=== PATIENT | female | born 1980 | race Two or more races ===

== ENCOUNTER 2024-07-28 19:00 | Emergency (ER) | payer OTHER, MEDICAID, SELFPAY ==
[2024-07-28 19:01] VITALS: BMI 23.5
[2024-07-28 19:59] VITALS: BP 139/77; PULSE 98; RESP 18; TEMP 36.9; O2SAT 98
--- NOTE | 2024-07-28 20:31 | PD.EDRME ---
Rapid Medical Screening Exam RME Arrival date/time: 07/28/24 19:00 Chief Complaint: Headache Time Seen by Provider: 07/28/24 19:37 Vital signs: Vital Signs Temperature 98.5 F 07/28/24 19:59 Pulse Rate 98 07/28/24 19:59 Respiratory Rate 18 07/28/24 19:59 Blood Pressure 139/77 H 07/28/24 19:59 Pulse Oximetry (%) 98 07/28/24 19:59 Oxygen Delivery Method Room Air 07/28/24 19:59 Vital signs reviewed by provider: Yes RME Narrative: 43-year-old female presents to the ED with a complaint of headache off and on for years but worse since this past . She is also complaining of palpitations and irregular heartbeat with occasional difficulty swallowing. She has associated nausea, and tingling in her hands and feet. She denies fever or chills. I have greeted and performed a focused initial assessment of this patient. A comprehensive ED assessment and evaluation of the patient, analysis of all test results, and completion of the medical decision making process will be conducted by additional ED providers.
--- NOTE | 2024-07-28 20:44 | PD.EDHA ---
ED Headache RME/HPI General Chief Complaint: Headache Stated Complaint: HEADACHE/DIZZINESS/SOB/EXTREMITY TINGLING X 3 DAYS Time Seen by Provider: 07/28/24 19:37 Arrival date/time: 07/28/24 19:00 RME / HPI RME / HPI Narrative: 43-year-old female presents to the ED with a complaint of headache off and on for years but worse since this past . She is also complaining of palpitations and irregular heartbeat with occasional difficulty swallowing. She has associated nausea, and tingling in her hands and feet. She denies fever or chills. I have greeted and performed a focused initial assessment of this patient. A comprehensive ED assessment and evaluation of the patient, analysis of all test results, and completion of the medical decision making process will be conducted by additional ED providers. This section includes all my notes and documentations, including HPI, PE, and ED course. Devin Sánchez MD HPI: 43yo female with no significant past medical history presents to the ED with uncomfortable intermittent episodes for the past several days. Symptoms can include intense fear, pounding and racing heart, sweating, chills, shaking, trouble breathing, chest pain, stomach pain, nausea, numbness and tingling in the hands and feet and face, confusion, hot flashes, and feeling faint. No other complaints. ROS: All negative except as documented in HPI. Physical Exam: General: Alert and oriented. Appears anxious. Eyes: Conjunctivae and lids clear. EOMI. PERRL. ENT: No nasal congestion. Neck: Supple. No carotid bruit. No JVD. Heart: RRR. Lungs: No respiratory distress. Good air movement. No rhonchi, wheezing, rales. Abdomen: Soft and nontender. Normal bowel sounds. No distension. No rebound or guarding. Back: No CVA tenderness. Legs: No clubbing, cyanosis, edema. Skin: Warm and dry. Neuro: Alert and oriented X 3. Cranial Nerves II-XII grossly intact. No peripheral motor deficits. I reviewed all diagnostic test results. My interpretation of the EKG is NSR with no ST-T changes. My interpretation of the chest x-ray is NAD. My review of the CT head report is unremarkable. Blood tests are unremarkable. At this point, diagnoses include anxiety reaction. Treatment here included Xanax and Zofran. Significant improvement noted. Recommended more outpatient workup. Based on my best medical judgment, made decision no further evaluation or treatment indicated at this time. Patient understands and agrees to the discharge instructions customized and printed, see below. Discharge instructions from Dr. Sánchez: 1. After extensive evaluation, there is no life-threatening condition. Such as stroke or brain tumor or heart attack or pulmonary embolism (blood clots in your lungs) or pneumothorax (collapsed lung). 2. Your symptoms may be due to underlying stress or anxiety or nerves. This is fairly common. 3. Take Xanax as needed. Whether this helps or not will be valuable information to your private doctors. 4. See a private doctor on 07/30/2024. To make sure there is no serious underlying heart condition, ask to help you get more tests for your heart that cannot be done here in the ER. Such as Holter Monitor (cardiac monitoring at home from a day to even a month), heart stress test (on treadmill or with medication), echocardiogram (imaging of your heart structures), heart catherization (checking for blockages in your heart arteries), and a referral to see a [employer]. 5. Seek immediate medical care with worsening or with any concerns. Devin Sánchez MD Related Data Previous Rx's ?Medication ?Instructions ?Recorded ipratropium bromide 21 mcg (0.03 2 spray intranasal BID #30 mL 11/18/18 %) nasal spray loratadine 10 mg tablet (Allergy 10 mg PO QDAY allergy symptoms #30 11/18/18 Relief (loratadine)) tabs ibuprofen 600 mg tablet 600 mg PO Q8H #14 tabs 11/21/18 alprazolam 0.5 mg tablet (Xanax) 0.5 mg PO BID PRN anxiety #10 tabs 07/28/24 Allergies Allergy/AdvReac Type Severity Reaction Status Date / Time No Known Allergies Allergy Verified 07/28/24 19:03 Review of Systems Review of Systems Systems Reviewed: All systems reviewed, normal except as documented Past Medical History Past Medical History CARDIAC: Negative Congestive Heart Failure RESPIRATORY: Negative Chronic Obstructive Pulmonary Disease (COPD) GENITOURINARY: Negative Renal Disease ENDOCRINE: Negative Diabetes Mellitus Type 1 or Diabetes Mellitus Type 2 Social History SMOKING STATUS: Never smoker ED Exam Narrative Physical exam: As noted in HPI. Course Course Course Narrative: CXR is ordered for determining the etiology of palpitations. Quality Measures none Orders Category Date Time Status EKG (ED ONLY) *Do not use* NOW Care 07/28/24 20:[address] head/brain wo con Stat Exams 07/28/24 20:53 Completed EKG (ED Only) Stat Exams 07/28/24 20:53 Draft XR chest 1V portable Stat Exams 07/28/24 20:53 Completed BNP [B-Type Natriuretic Peptide] Stat Lab 07/28/24 21:08 Completed Bilirubin,Direct Stat Lab 07/28/24 21:08 Completed CBC Stat Lab 07/28/24 21:08 Completed CMP [Comprehensive Metabolic Panel] Stat Lab 07/28/24 21:08 Completed Free T4 (Free Thyroxine) Stat Lab 07/28/24 21:08 Completed Magnesium Stat Lab 07/28/24 21:08 Completed TSH [Thyroid Stimulating Hormone] Stat Lab 07/28/24 21:08 Completed Troponin I Stat Lab 07/28/24 21:08 Completed ALPRazoLAM [Xanax] Med 07/28/24 20:52 Discontinued 0.5 mg PO X1 ONE Ondansetron Odt [Zofran Odt] Med 07/28/24 20:53 Discontinued 4 mg PO X1 ONE Vital Signs Vital signs: Vital Signs Temperature 98.5 F 07/28/24 19:59 Pulse Rate 98 07/28/24 19:59 Respiratory Rate 18 07/28/24 19:59 Blood Pressure 139/77 H 07/28/24 19:59 Pulse Oximetry (%) 98 07/28/24 19:59 Oxygen Delivery Method Room Air 07/28/24 19:59 Headache MDM Narrative MDM Narrative:: Scribe Attestation: 07/28/24 - Loida Hayward am scribing for and in the presence of Dr. Sánchez. 43yo female with no significant past medical history presents to the ED for a chief complaint of a headache for the last few days. Patient states her headache is intermittent, reporting it's gotten progressively worse. Patient reports associated lightheadedness, dizziness, palpitations, and tingling to her face, bilateral hands, and bilateral feet. Patient denies any fever, chills, sweating, cough or any other associated symptoms. No other complaints reported. Patient data External records reviewed:: [facility] previous records (Per chart review, patient was seen here on 04/13/21 for chest pain.) Clinical information provided by:: patient Social determinants that could affect healthcare access:: none Patient has the following chronic illnesses:: none How is presenting disease/condition affected by chronic disease/condition?: no chronic disease Evaluation data The following diagnostics were reviewed and interpreted by me:: lab results, radiology exam(s) and EKG tracing(s) (My interpretation of the EKG: NSR (80 bpm) with no ST-T changes. Devin Sánchez MD) Lab and/or radiology exams considered but not ordered:: none Interpretation Summary: I reviewed all diagnostic test results. My interpretation of the EKG is NSR with no ST-T changes. My interpretation of the chest x-ray is NAD. My review of the CT head report is unremarkable. Blood tests are unremarkable. Medications / Prescriptions Medications or Prescriptions considered but not ordered:: none Medication administrations:: Medication Administration History Discontinued Medications Alprazolam (Alprazolam 0.25 Mg Tablet) 0.5 mg PO X1 ONE Stop: 07/28/24 20:53 Last Admin: 07/28/24 21:02 Dose: 0.5 mg Documented By: JOHNNIE Ondansetron HCl (Ondansetron Odt 4 Mg Tabrap) 4 mg PO X1 ONE; Protocol Stop: 07/28/24 20:54 Last Admin: 07/28/24 21:02 Dose: 4 mg Documented By: Alan Arevalo Consultations Consultation(s) initiated? (list below): No Diagnosis Differential diagnosis headache: migraine, tension headache, subarachnoid hemorrhage, headache, meningitis, sinusitis, postconcussion syndrome and other (CT, anxiety) Most likely diagnosis given after review of the tests above:: Anxiety Admission Indicated Admission indicated?: not indicated Explain why admission is indicated or not indicated:: With significant improvement, there was no indication for admission. Admission Request Was there a request for admission?: No Disposition Plan Disposition Plan: Discharge Discharge Attestation Discharge Attestation: The patient and all family members were given an opportunity to ask questions and understood the discharge instructions. Discharge instructions specifically effects, indications for sooner follow up or return to the emergency department, and the expected course of current diagnosis. Patient condition: Stable Discharge Plan Plan Patient Disposition: HOME (Self Care) Prescriptions/Referrals Prescriptions/Med Rec: New alprazolam [Xanax] 0.5 mg tablet 0.5 mg PO BID PRN (Reason: anxiety) Qty: 10 0RF No Action ibuprofen 600 mg tablet 600 mg PO Q8H Qty: 14 0RF loratadine [Allergy Relief (loratadine)] 10 mg tablet 10 mg PO QDAY Qty: 30 3RF ipratropium bromide 0.03 % spray,non-aerosol 2 spray INTRANASAL BID Qty: 30 0RF Rx Instructions: administer into each nostril; wait 30 seconds between sprays Referrals: No Primary/Family,Physician [Primary Care Provider] - In 1 week Problem List Clinical Impression: Palpitations Patient/Caregiver Discharge Instructions Discharge Activity: activity as tolerated Education Materials: ED Anxiety Reaction, ED Panic Attack Additional Instructions: Discharge instructions from Dr. Sánchez: 1. After extensive evaluation, there is no life-threatening condition.? Such as stroke or brain tumor or heart attack or pulmonary embolism (blood clots in your lungs) or pneumothorax (collapsed lung). 2. Your symptoms may be due to underlying stress or anxiety or nerves.? This is fairly common. 3. Take Xanax as needed.? Whether this helps or not will be valuable information to your private doctors. 4. See a private doctor on 07/30/2024. To make sure there is no serious underlying heart condition, ask to help you get more tests for your heart that cannot be done here in the ER.? Such as Holter Monitor (cardiac monitoring at home from a day to even a month), heart stress test (on treadmill or with medication), echocardiogram (imaging of your heart structures), heart catherization (checking for blockages in your heart arteries), and a referral to see a [employer]. 5. Seek immediate medical care with worsening or with any concerns.?? Print Language: Slovak Stand Alone Forms: [employer] Award Info., Work/School Release, Patient Portal Info Letter
--- NOTE | 2024-07-28 20:53 | XR_ITS ---
Examination: AP chest single view TECHNIQUE: AP portable semiupright chest single view Date and time: July 28, 2024 2130 hours Comparison 10/14/2021 INDICATIONS: Palpitations this week FINDINGS: Normal heart size Lungs are clear No pneumonia or pulmonary edema IMPRESSION: No active disease
--- NOTE | 2024-07-28 20:53 | XR_ITS ---
Examination: CT brain head without contrast. 2-D sagittal coronal reconstructions Date and time of exam:July 28, 2024 1042 hours INDICATIONS: Headaches extremity paresthesias dizziness episodes 3 days CTDI: vol (mGy):46 DLP: (mGycm):914 Technique: Multiple CT axial sections of the brain have been obtained, 5 mm slice thickness. Contrast has not been administered. 2-D sagittal, coronal reconstructions have been obtained Low dose protocols were performed. One or more of the following dose reduction techniques were used; automated exposure control, adjustment of the mA and/or KV according to patient size, use of iterative reconstruction technique. Findings: No significant ventricular enlargement. Intra-axial or extra-axial hemorrhage density is not seen. No mass effect or midline shift Basal cisterns are not remarkable. Fourth ventricle is midline. Cranial vault intact. Impression: Negative for acute hemorrhage, mass effect or midline shift As clinically warranted, brain MRI follow-up would best assess for demyelinating disease, acute ischemic change
--- NOTE | 2024-07-28 20:53 | EKG_ITS ---
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
[2024-07-28 20:55] VITALS: BP 132/70; PULSE 85; RESP 18; TEMP 36.9; O2SAT 100
[2024-07-28] MEDS: ALPRazoLAM 0.25 MG TABLET 0.5 MG PO (21:02)
[2024-07-28] MEDS: ONDANSETRON ODT 4 MG TABRAP PO (21:02)
[2024-07-28 21:14] LABS: Basophils % (Auto) 0 % (0-2.5); Eosinophils # (Auto) 0.1 Thou/mm3 (0.0-0.5); Eosinophils % (Auto) 1 % (0-10); Hematocrit 36.7 % (36.0-46.0); Hemoglobin 12.8 g/dL (12.0-16.0); Immature Granulocytes % (Auto) 0 % (0-0); Immature Granulocytes Auto 0.02 Thou/mm3 (0.00-0.00); Lymphocytes # (Auto) 2.3 Thou/mm3 (1.0-4.8); Lymphocytes % (Auto) 24 % (10-50); Mean Corpuscular HGB Conc 34.9 g/dl (31.0-37.0); Mean Corpuscular Hemoglobin 31.4 pg (25.0-35.0); Mean Corpuscular Volume 90 fL (80-100); Monocytes # (Auto) 0.8 Thou/mm3 (0.0-0.8); Monocytes % (Auto) 8 % (0-12); Neutrophils # (Auto) 6.5 Thou/mm3 (1.8-7.7); Neutrophils % (Auto) 67 % (37-80); Nucleated Red Blood Cell % 0 /100 WBC (0); Platelet Count 273 Thou/mm3 (140-440); RDW Standard Deviation 44.5 fL (36.4-46.3); Red Blood Count 4.07 Miln/mm3 (4.00-5.20); White Blood Count 9.7 Thou/mm3 (3.6-11.0)
[2024-07-28 21:40] LABS: B-Type Natriuretic Peptide < 20 pg/mL (0-100)
[2024-07-28 21:45] LABS: Alanine Aminotransferase 14 U/L (10-49); Albumin, Serum 4.7 gm/dL (3.5-5.0); Albumin/Globulin Ratio 1.6 (1.2-2.2); Alkaline Phosphatase 62 U/L (46-116); Anion Gap 10 (7-16); Aspartate Amino Transferase 21 U/L (0-34); BUN/Creatinine Ratio 16 Ratio (12-20); Bilirubin,Direct 0.1 mg/dL (0.0-0.3); Bilirubin,Total 0.6 mg/dL (0.3-1.2); Blood Urea Nitrogen 13 mg/dL (9-23); Calcium 8.9 mg/dL (8.3-10.6); Calcium (Corrected) 8.9 mg/dL (8.5-10.1); Chloride 106 mMol/L (98-107); Creatinine (Component) 0.8 mg/dL (0.6-1.3); Estimated Creatinine Clearance 79.1 mL/min (>60); Free T4 (Free Thyroxine) 1.34 ng/dL (0.89-1.76); Globulin 2.9 gm/dL (2.3-3.5); Glucose 104 mg/dL (74-106); Magnesium 2.1 mg/dL (1.6-2.6); Osmolality,Calculated 277 (275-295); Potassium 3.8 mMol/L (3.4-5.1); Sodium 139 mMol/L (136-145); Thyroid Stimulating Hormone 1.69 uIU/mL (0.55-4.78); Total Protein 7.6 gm/dL (5.7-8.2); Troponin I < 0.002 ng/mL (0.0-0.045); eGFR > 60 See Note
[2024-07-28 23:30] VITALS: BP 121/75; PULSE 81; RESP 16; O2SAT 98
[2024-07-28 23:31] VITALS: TEMP 37
== END 2024-07-28 23:57 | disposition home or self-care (01) ==
PROVIDERS: Emergency Provider Emergency Medicine
DX: R00.2 Palpitations (principal); F41.1 Generalized anxiety disorder; R51.9 Headache, unspecified; R42 Dizziness and giddiness; R20.2 Paresthesia of skin; R94.31 Abnormal electrocardiogram [ECG] [EKG]
CPT/HCPCS: 36415; 70450; 71045; 80053; 82248; 83735; 83880; 84439; 84443; 84484; 85025; 93005; 99284; Q0162; A9270